=== PATIENT | male | born 1980 | race Caucasian/White ===

== ENCOUNTER 2017-04-19 08:08 | Day surgery (SDC) | payer MEDICAID ==
[2017-04-15 13:46] VITALS: BMI 25.5
[2017-04-19] MEDS ORDERED: Lidocaine 2% w Epi 1:100,000 Inj IJ ONE ×2 (09:55→09:59)
[2017-04-19] MEDS ORDERED: ceFAZolin IV 2 gm in Dextrose 1 GM/50 ML BAG IVPB ONE ×2 (09:55→09:58)
[2017-04-19] MEDS ORDERED: Bupivacaine HCl 0.25% PF (10 ml) Inj ONE ×3 (09:55→12:33)
[2017-04-19] MEDS ORDERED: Midazolam 2 MG/2 ML VIAL ONE (09:59)
[2017-04-19] MEDS ORDERED: Propofol 10 mg/ml Inj (20 ML) ONE (09:59)
[2017-04-19] MEDS ORDERED: Sodium Chloride 0.9% 0 ML IV ONE (09:59)
[2017-04-19] MEDS ORDERED: Lactated Ringer's 1,000 ML IV ONE ×2 (10:05→11:44)
[2017-04-19] MEDS ORDERED: Neostigmine Methylsulfate 3mg/3ml Syringe IV ONE (12:07)
--- NOTE | 2017-04-19 12:50 | PCM.SURG1 ---
Surgeon's Initial Post Op Note - Surgeon's Notes Surgeon: Sulaiman Edger Saw Operator: Manasa [id number] Type of Anesthesia: General Endo, Local Pre-Operative Diagnosis: L inguinal hernia Operative Findings: Left direct inguinal hernia. Right pantaloon inguinal hernia Post-Operative Diagnosis: L direct inguinal hernia. R pantaloon inguinal hernia Operation Performed: Robotic assisted TAP B/L inguinal hernia repair Specimen/Specimens Removed: none Estimated Blood Loss: EBL {In ML}: 5 Blood Products Given: N/A Drains Used: No Drains Post-Op Condition: Good Date of Surgery/Procedure: 04/19/17 Time of Surgery/Procedure: 12:49
[2017-04-19] MEDS ORDERED: HYDROmorphone 1 mg/ml ISec ONE (13:14)
[2017-04-19] MEDS: HYDROmorphone 0.5 mg/0.5 ml ISec IVP PRN ×2 (13:15→13:32)
[2017-04-19 16:31] VITALS: BP 126/72; PULSE 92; RESP 20; TEMP 98.2; O2SAT 100
--- NOTE | 2017-04-19 17:24 | OP ---
PROCEDURE DATE: 04/19/2017 PREOPERATIVE DIAGNOSIS: Left inguinal hernia. POSTOPERATIVE DIAGNOSES: 1. Left direct inguinal hernia. 2. Right direct and indirect inguinal hernia. PROCEDURES: 1. Robotic left inguinal hernia repair with the mesh. 2. Robotic right inguinal hernia repair with mesh. SURGEON: Blu Hilario MD. REGIONAL ACCOUNT EXECUTIVE: ANGUS Márquez and Ash Goel, PGY-2 resident. ANESTHESIA: General endotracheal tube anesthesia. ESTIMATED BLOOD LOSS: Around 10 mL. DRAINS: None. PATHOLOGY: None. COMPLICATIONS: None. INTRAOPERATIVE FINDINGS: The patient had a left direct inguinal hernia and patient also had right direct and indirect inguinal hernia. INTRAOPERATIVE STEPS: This 37-year-old male was diagnosed with a left inguinal hernia with possible bilateral inguinal hernia. The patient was consented for robotic left inguinal hernia repair with the mesh, possible bilateral repair. Brought to the OR, placed supine on the operating table. After induction of the anesthesia, abdomen was prepped and draped in the usual sterile fashion and a Nugent catheter and NG tube was placed and supraumbilical transverse 1.5 cm incision was made. After incising skin and subcutaneous tissue and fascia, the robotic camera port was placed. Another three 8 mm robotic port was placed in upper abdomen and robot was brought in and the camera arm as well and arm 1 and arm 2 was docked and through the console, the peritoneal dissection was done from the left ASIS right ASIS. The patient found to have bilateral inguinal hernia and dissection of the peritoneum was continued medially to the pubic symphysis in the space of Retzius laterally to the lateral abdominal wall and peritoneal reflection and dissection was carried down up to the left direct hernial sac and the sac was reduced back into the peritoneal cavity. The vas deferens and the spermatic cord vessels were dissected it free on the left side as well as same dissection was done on the right side. After that the left anatomical mesh was placed and the mesh was implanted and now the right mesh was placed and mesh was implanted. After proper implantation of the mesh on both sides, the peritoneum was sutured medially with 0 Vicryl interrupted suture as well as continuously with 2-0 Vicryl V-Loc suture and all the instruments were taken out. All the ports were taken out under vision and robot was undocked before taking out the port. The umbilical port site was closed in 2 layers, the fascia with 0 Vicryl interrupted suture, skin with a 4- 0 Monocryl and dry sterile dressing was applied. The patient tolerated the procedure well. Count of instruments and gauze was correct. There was no apparent complication. Blu Hilario MD cc: [id number] TT: 04/19/2017 17:23:52 jn [email or web address]
== END 2017-04-19 16:30 | disposition home or self-care (01) ==
LOC: EDSEX → C.SDS 08:08
PROVIDERS: ATTEND Surgery Surgical Critical Care
DX: K40.20 Bilateral inguinal hernia, without obstruction or gangrene, not specified as recurrent (principal)
CPT/HCPCS: 49650; C1781; J0690; J1100; J1170; J1885; J2250; J2704; J2710; J3010; J7120